=== PATIENT | male | born 1965 | race Caucasian/White ===

== ENCOUNTER 2016-11-12 15:04 | Emergency (ER) | payer OTHER ==
[~2016-11-12] VITALS: Ht 175.3 cm; Wt 82.0 kg
[~2016-11-12 15:04] MED LIST: ANTABUSE250 MG PO; BUDEPRION XL300 MG PO; CELEBREX200 MG PO; CLONAZEPAM0.5 MG PO; FLEXERIL10 MG PO; FLUOXETINE HCL40 MG PO; INVEGA6 MG PO; LANTUS100 UNIT/1 SQ; LIBRIUM25 MG PO; LIDODERM 5% P1 PATCH TD; MELOXICAM7.5 MG PO; MOTRIN600 MG PO; NOHOMEMEDS; NORCO 5/3251 TABLET PO; NORCO 7.5/321 TABLET PO; NOVOLOG100 UNIT/1 SC; PRAVACHOL40 MG PO; PREDNISONE20 MG PO; PRINIVIL10 MG PO; PROTONIX40 MG PO; PROZAC40 MG PO; PROzac PO; Protonix PO; RANITIDINE HCL300 M1 PO; THIAMINE HCL100 MG PO; TRAMADOL HCL50 MG PO; TRAZODONE HCL50 MG PO; VALIUM5 MG PO
[2016-11-12 16:11] LABS: HEMATOCRIT 41.7 % (38.0-50.0); MCH 30.1 PG (29.0-34.0); MCHC 33.3 G/DL (30.0-36.0); MCV 90.3 FL (86-99); MEAN PLAT.VOLUME 9.6 uM^3 (9.0-12.4); PLATELET COUNT 250 K/uL (156-360); RBC DIS.WIDTH-CV 14.2 % (11.8-14.6); RBC DIS.WIDTH-SD 46.9 % (39-53); RED BLOOD COUNT 4.62 M/uL (4.00-5.50); WHITE BLOOD COUNT 10.8 K/uL (4.1-10.2)
[2016-11-12 16:20] LABS: CHLORIDE 107 mEq/L (99-109); SODIUM 139 mEq/L (136-147)
[2016-11-12 16:22] LABS: AMPHETAMINE NEGATIVE (500 ng/mL); BARBITURATES NEGATIVE (200 ng/mL); BENZODIAZEPINES NEGATIVE (150 ng/mL); COCAINE NEGATIVE (150 ng/mL); INTERNAL CONTROLS VALID? YES; METHADONE NEGATIVE (200 ng/mL); METHAMPHETAMINE NEGATIVE (500 ng/mL); OPIATES (MORPHINE) PRESUMPTIVE POSITIVE (100 ng/mL); OXYCODONE NEGATIVE (100 ng/mL); PHENCYCLIDINE NEGATIVE (25 ng/mL); PROPOXYPHENE NEGATIVE (300 ng/mL); THC CANNABINOIDS NEGATIVE (50 ng/mL); TRICYCLIC ANTIDEPRESSANTS NEGATIVE (300 ng/mL)
[2016-11-12 16:22] LABS: GLUCOSE 94 mg/dL (70-99)
[2016-11-12 16:23] LABS: ADD MEDTOX COMMENT Y
[2016-11-12 16:23] LABS: ANION GAP 13 MEQ/L (2-14)
[2016-11-12 16:24] LABS: TOTAL BILIRUBIN 0.2 mg/dL (0.0-1.0)
[2016-11-12 16:25] LABS: ALKALINE PHOSPHATASE 97 IU/L (3-129); SERUM ETHYL ALCOHOL 101 mg/dL
[2016-11-12 16:26] LABS: GFR ESTIMATE (CALCULATED) > 59 mL/min/
[2016-11-12 16:27] LABS: UREA NITROGEN (BUN) 11 mg/dL (9-23)
[2016-11-12 16:29] LABS: LIPASE 23 U/L (1.0-51.0)
[2016-11-12] MEDS ORDERED: ZOFRAN ODT4 MG PO (16:39)
[2016-11-12] MEDS ORDERED: LIBRIUM25 MG PO (16:39)
[2016-11-12 17:05] LABS: OPIATES QUANTITATIVE VALUE 0 NG/ML
[2016-11-12] MEDS ORDERED: CLONIDINE HCL0.1 MG PO (17:17)
[2016-11-12 17:33] VITALS: BP 120/88
== END 2016-11-12 17:38 | disposition home or self-care (01) ==
LOC: EME 15:04
PROVIDERS: Emergency Medicine
DX: F10.239 Alcohol dependence with withdrawal, unspecified (principal); F11.23 Opioid dependence with withdrawal; F17.200 Nicotine dependence, unspecified, uncomplicated
CPT/HCPCS: 80053; 83690; 84999; 85027; 90839; 99281; 99285; G0480; J2060; J2405; J7030

== ENCOUNTER 2018-02-03 17:29 | Inpatient (IN) | payer OTHER ==
[~2018-02-03] VITALS: Ht 175.3 cm; Wt 84.2 kg
[~2018-02-03 17:29] MED LIST changes: -CLONAZEPAM0.5 MG PO; +CLONIDINE HCL0.1 MG PO; -INVEGA6 MG PO; -PROZAC40 MG PO; +ZOFRAN ODT4 MG PO
[2018-02-03 17:56] LABS: BASOPHIL (%) 0.5 % (0-1); BASOPHIL COUNT 0.1 K/uL (0-0.1); EOSINOPHIL (%) 0.4 % (0-5); HEMATOCRIT 36.8 % (38.0-50.0); HEMOGLOBIN 13.1 G/DL (12.5-16.6); IMMATURE GRANULOCYTE (%) 0.4 % (0.0-0.7); LYMPHOCYTE (%) 21.9 % (15-42); LYMPHOCYTE COUNT 2.4 K/uL (1.0-2.8); MCH 33.9 PG (29.0-34.0); MCHC 35.6 G/DL (30.0-36.0); MCV 95.3 FL (86-99); MONOCYTE COUNT 0.8 K/uL (0-0.8); NEUTROPHIL (%) 69.8 % (45-76); NEUTROPHIL COUNT 7.8 K/uL (1.8-6.4); PLATELET COUNT 186 K/uL (156-360); RBC DIS.WIDTH-CV 12.6 % (11.8-14.6); RBC DIS.WIDTH-SD 43.6 % (39-53); RED BLOOD COUNT 3.86 M/uL (4.00-5.50); WHITE BLOOD COUNT 11.1 K/uL (4.1-10.2)
[2018-02-03 18:05] LABS: CHLORIDE 101 mEq/L (99-109); POTASSIUM 4.3 mEq/L (3.7-5.4); SODIUM 132 mEq/L (136-147)
[2018-02-03 18:06] LABS: GLUCOSE 87 mg/dL (70-99)
[2018-02-03 18:10] LABS: CREATININE 1.8 mg/dL (0.6-1.3); GFR ESTIMATE (CALCULATED) 42 mL/min/ (58.99-99999); SERUM ETHYL ALCOHOL < 10 mg/dL
[2018-02-03 18:11] LABS: UREA NITROGEN (BUN) 19 mg/dL (9-23)
[2018-02-03 18:13] LABS: CREATINE KINASE 51 IU/L (1-294)
[2018-02-03 18:17] LABS: APPEARANCE SL.HAZY ((CLEAR)); BILIRUBIN NEGATIVE; BLOOD NEGATIVE; COLOR YELLOW ((YELLOW)); GLUCOSE (STRIP) NEGATIVE; KETONES 5; LEUKOCYTES NEGATIVE; NITRITE NEGATIVE; PROTEIN (STRIP) NEGATIVE; SPECIFIC GRAVITY 1.013 (1.000-1.030); UROBILINOGEN 0.2 MG/DL (0.2-1.0)
[2018-02-03 18:24] LABS: ALBUMIN 3.6 g/dL (3.2-4.8)
[2018-02-03 18:26] LABS: THC CANNABINOIDS NEGATIVE (50 ng/mL)
[2018-02-03 18:27] LABS: TOTAL PROTEIN 5.9 g/dL (6.4-8.3)
[2018-02-03 18:27] LABS: AMPHETAMINE NEGATIVE (500 ng/mL); BARBITURATES NEGATIVE (200 ng/mL); BENZODIAZEPINES PRESUMPTIVE POSITIVE (150 ng/mL); BUPRENORPHINE NEGATIVE (10 ng/mL); COCAINE NEGATIVE (150 ng/mL); METHADONE NEGATIVE (200 ng/mL); METHAMPHETAMINE NEGATIVE (500 ng/mL); OPIATES (MORPHINE) PRESUMPTIVE POSITIVE (100 ng/mL); OXYCODONE PRESUMPTIVE POSITIVE (100 ng/mL); PHENCYCLIDINE NEGATIVE (25 ng/mL); PROPOXYPHENE NEGATIVE (300 ng/mL); TRICYCLIC ANTIDEPRESSANTS NEGATIVE (300 ng/mL)
[2018-02-03 18:29] LABS: TOTAL BILIRUBIN 0.5 mg/dL (0.0-1.0)
[2018-02-03 18:30] LABS: ALKALINE PHOSPHATASE 65 IU/L (3-129)
[2018-02-03 18:31] LABS: BACTERIA NONE SEEN /HPF; EPITHELIAL CELLS RARE /HPF; HYALINE CASTS 20-30 /LPF; MUCUS TRACE /LPF; RED BLOOD CELLS 0-5 /HPF (0-5); UCUL ADDED? NO; WHITE BLOOD CELLS 0-5 /HPF (0-5)
[2018-02-03 18:32] LABS: AST (GOT) 18 IU/L (2-34); DIRECT BILIRUBIN 0.2 mg/dL (0.0-0.3)
[2018-02-03 18:33] LABS: ALT (GPT) 10 IU/L (3-49)
[2018-02-03 18:37] LABS: TROP-I INTERPRETATION NEGATIVE; TROPONIN-I < 0.01 ng/mL (0.0-0.30)
[2018-02-03 19:50] LABS: BENZODIAZEPINES, URINE SCREEN Negative (200 ng/mL)
[2018-02-03] MEDS ORDERED: INVEGA6 MG PO (21:10)
[2018-02-03] MEDS ORDERED: PROZAC40 MG PO (21:10)
[2018-02-03] MEDS ORDERED: CLONAZEPAM0.5 MG PO (21:10)
[2018-02-03] MEDS ORDERED: PROTONIX40 MG PO (21:10)
[2018-02-03] MEDS ORDERED: ALEVE220 MG PO (21:11)
[2018-02-03] MEDS ORDERED: FLEXERIL10 MG PO (21:11)
[2018-02-03] MEDS ORDERED: FLUOXETINE HCL20 MG PO (21:11)
[2018-02-03] MEDS ORDERED: NORCO 10/3251 TABLET PO (21:12)
[2018-02-03] MEDS ORDERED: GABAPENTIN300 MG PO (21:12)
[2018-02-03 22:00] VITALS: BP 120/64
[2018-02-03 22:18] VITALS: BP 120/64
[2018-02-04] VITALS (7 sets, daily range): BP systolic 103–130; BP diastolic 60–70
[2018-02-04 05:56] LABS: HEMATOCRIT 36.7 % (38.0-50.0); HEMOGLOBIN 12.2 G/DL (12.5-16.6); MCH 32.7 PG (29.0-34.0); MCHC 33.2 G/DL (30.0-36.0); MCV 98.4 FL (86-99); PLATELET COUNT 185 K/uL (156-360); RBC DIS.WIDTH-CV 12.9 % (11.8-14.6); RBC DIS.WIDTH-SD 46.3 % (39-53); RED BLOOD COUNT 3.73 M/uL (4.00-5.50); WHITE BLOOD COUNT 8.9 K/uL (4.1-10.2)
[2018-02-04 06:27] LABS: ALBUMIN 3.1 G/DL (3.2-4.8); ALKALINE PHOSPHATASE 52 IU/L (3-129); ALT (GPT) 6 IU/L (3-49); AST (GOT) 12 IU/L (2-34); CHLORIDE 108 MEQ/L (99-109); GLUCOSE 108 mg/dL (70-99); POTASSIUM 3.6 MEQ/L (3.7-5.4); TOTAL BILIRUBIN 0.2 MG/DL (0.0-1.0); TOTAL PROTEIN 5.3 G/DL (6.4-8.3); UREA NITROGEN (BUN) 16 mg/dL (9-23)
[2018-02-04 06:28] LABS: CREATININE 1.2 MG/DL (0.6-1.3); GFR ESTIMATE (CALCULATED) > 59 mL/min/ (58.99-99999); SODIUM 141 MEQ/L (136-147)
[2018-02-05 03:48] VITALS: BP 113/74
[2018-02-05 05:34] LABS: HEMATOCRIT 33.4 % (38.0-50.0); HEMOGLOBIN 11.1 G/DL (12.5-16.6); MCH 32.7 PG (29.0-34.0); MCHC 33.2 G/DL (30.0-36.0); MCV 98.5 FL (86-99); PLATELET COUNT 165 K/uL (156-360); RBC DIS.WIDTH-CV 12.5 % (11.8-14.6); RBC DIS.WIDTH-SD 45.3 % (39-53); RED BLOOD COUNT 3.39 M/uL (4.00-5.50); WHITE BLOOD COUNT 7.2 K/uL (4.1-10.2)
[2018-02-05 06:27] LABS: CHLORIDE 114 MEQ/L (99-109); CREATININE 0.8 MG/DL (0.6-1.3); GFR ESTIMATE (CALCULATED) > 59 mL/min/ (58.99-99999); GLUCOSE 93 mg/dL (70-99); SODIUM 144 MEQ/L (136-147); UREA NITROGEN (BUN) 11 mg/dL (9-23)
[2018-02-05 06:30] LABS: POTASSIUM 4.6 MEQ/L (3.7-5.4)
== END 2018-02-05 07:16 | disposition left against medical advice (07) | DRG 894 ==
LOC: EME 17:29 → 4EAST 20:59 → EDOF 20:59 → ENRESERV 21:01 → 4EAST 22:04
PROVIDERS: Internal Medicine
DX: F10.239 Alcohol dependence with withdrawal, unspecified (principal); R56.9 Unspecified convulsions; I95.9 Hypotension, unspecified; R19.7 Diarrhea, unspecified; F17.200 Nicotine dependence, unspecified, uncomplicated; N17.9 Acute kidney failure, unspecified; G89.29 Other chronic pain; M54.9 Dorsalgia, unspecified; K21.9 Gastro-esophageal reflux disease without esophagitis; F11.23 Opioid dependence with withdrawal; F10.24 Alcohol dependence with alcohol-induced mood disorder; Z53.21 Procedure and treatment not carried out due to patient leaving prior to being seen by health care provider
CPT/HCPCS: 70450; 71046; 80048; 80053; 80076; 81003; 82140; 82550; 83605; 83630; 83735; 84484; 84999; 85025; 85027; 85379; 87040; 87177; 87493; 93005; 94760; 94799; 99281; 99285; G0480; J1644; J3411; J3475; J7030

== ENCOUNTER 2018-02-05 21:40 | Emergency (ER) | payer OTHER ==
[~2018-02-05] VITALS: Ht 177.8 cm; Wt 79.3 kg
[~2018-02-05 21:40] MED LIST changes: +ALEVE220 MG PO; +CLONAZEPAM0.5 MG PO; +FLUOXETINE HCL20 MG PO; +GABAPENTIN300 MG PO; +INVEGA6 MG PO; +NORCO 10/3251 TABLET PO; +PROZAC40 MG PO
[2018-02-05 22:34] LABS: HEMOGLOBIN 12.5 G/DL (12.5-16.6); MCH 34.2 PG (29.0-34.0); MCHC 34.7 G/DL (30.0-36.0); MCV 98.6 FL (86-99); PLATELET COUNT 162 K/uL (156-360); RBC DIS.WIDTH-CV 12.6 % (11.8-14.6); RBC DIS.WIDTH-SD 45.8 % (39-53); RED BLOOD COUNT 3.65 M/uL (4.00-5.50); WHITE BLOOD COUNT 9.5 K/uL (4.1-10.2)
[2018-02-05 22:36] LABS: PCO2 39 mm Hg (35-45); pH 7.38 (7.35-7.45)
[2018-02-05 22:37] LABS: COMMENTS - BLOOD GASES A+C+; DEVICE ROOM AIR; PO2 43 mm Hg (80-100); SITE LR; TOTAL RESP RATE 25 resp/min
[2018-02-05 22:41] LABS: AMPHETAMINE NEGATIVE (500 ng/mL); BENZODIAZEPINES NEGATIVE (150 ng/mL); COCAINE NEGATIVE (150 ng/mL); METHAMPHETAMINE NEGATIVE (500 ng/mL); OPIATES (MORPHINE) PRESUMPTIVE POSITIVE (100 ng/mL); PHENCYCLIDINE NEGATIVE (25 ng/mL); THC CANNABINOIDS NEGATIVE (50 ng/mL)
[2018-02-05 22:42] LABS: BARBITURATES NEGATIVE (200 ng/mL); BUPRENORPHINE NEGATIVE (10 ng/mL); METHADONE NEGATIVE (200 ng/mL); OXYCODONE NEGATIVE (100 ng/mL); PROPOXYPHENE NEGATIVE (300 ng/mL); TRICYCLIC ANTIDEPRESSANTS NEGATIVE (300 ng/mL)
[2018-02-05 22:43] LABS: SODIUM 143 mEq/L (136-147)
[2018-02-05 22:45] LABS: GLUCOSE 83 mg/dL (70-99)
[2018-02-05 22:46] LABS: CHLORIDE 113 mEq/L (99-109)
[2018-02-05 22:48] LABS: SERUM ETHYL ALCOHOL 114 mg/dL
[2018-02-05 22:49] LABS: CREATININE 0.8 mg/dL (0.6-1.3); GFR ESTIMATE (CALCULATED) > 59 mL/min/ (58.99-99999)
[2018-02-05 22:50] LABS: UREA NITROGEN (BUN) 5 mg/dL (9-23)
[2018-02-05 22:52] LABS: ACETAMINOPHEN (TYLENOL) < 10 mcg/mL (10-30); SALICYLATE < 5.0 MG/DL (15-30)
[2018-02-06 00:56] VITALS: BP 139/82
== END 2018-02-06 00:57 | disposition home or self-care (01) ==
LOC: EME → EDBD 21:40 → EME 02-06 00:57
PROVIDERS: Emergency Medicine
DX: F10.10 Alcohol abuse, uncomplicated (principal); Y90.5 Blood alcohol level of 100-119 mg/100 ml; F20.9 Schizophrenia, unspecified; F12.90 Cannabis use, unspecified, uncomplicated; F41.9 Anxiety disorder, unspecified; Z86.69 Personal history of other diseases of the nervous system and sense organs; F17.200 Nicotine dependence, unspecified, uncomplicated
CPT/HCPCS: 36600; 80048 91; 82803; 84999; 85027; 99281; 99285; G0480